=== PATIENT | female | born 1945 | race Two or more races ===

== ENCOUNTER 2021-04-04 05:50 | Day surgery (SDC) | payer OTHER ==
[~2021-04-04 05:50] MED LIST: CARAFATE1 GM/10 ML PO; FENOFIBRATE145 MG PO; JANUVIA100 MG PO; LEVOTHYROXINE25 MCG PO; LYRICA225 MG PO; PRILOSEC OTC20 MG PO; PROAIR HFA8.5 GM IH; PROBIOTIC1 EAC2 PO; SIMVASTATIN5 MG PO
[2021-04-04] MEDS ORDERED: CEFADROXIL500 MG PO (08:09)
[2021-04-04] MEDS ORDERED: ELIQUIS2.5 MG PO (08:09)
[2021-04-04] MEDS ORDERED: ULTRACET PO (08:09)
== END 2021-04-04 11:45 | disposition home or self-care (01) ==
LOC: CIR.AMB 05:50
PROVIDERS: ATTEND Orthopaedic Surgery
DX: S83.232A Complex tear of medial meniscus, current injury, left knee, initial encounter (principal); M67.362 Transient synovitis, left knee; M94.262 Chondromalacia, left knee; Z20.822 Contact with and (suspected) exposure to COVID-19